=== PATIENT | male | born 1940 | race Caucasian/White ===

== ENCOUNTER 2018-09-08 12:22 | Inpatient (IN) ==
[2018-09-12] MEDS: Sennosides 8.6 MG TABLET PO SCH (19:44)
[2018-09-12] MEDS: *HR* HYDROcodone/Acet 5/325 mg TABLET PO PRN (19:44)
[2018-09-12] MEDS: PHENobarbital 32.4 MG TABLET PO SCH (20:15)
[2018-09-13 05:45] LABS: Basophils % 0.2 %; Eosinophils # 0.2 K/mcL (0.0-0.6); Eosinophils % 3.9 %; Hematocrit 32.1 % (37.5-50.1); Hemoglobin 11.1 g/dL (12.9-16.9); Immature Granulocytes % 0.9 % (0-4); Lymphocytes # 1.1 K/mcL (0.6-4.6); Mean Corpuscular HGB Conc 34.6 g/dL (31.6-35.5); Mean Corpuscular Hemoglobin 30.9 pg (28.0-33.3); Mean Corpuscular Volume 89.4 fL (83.0-100.0); Mean Platelet Volume 9.1 fL (9.4-12.4); Monocytes # 0.5 K/mcL (0.0-1.3); Monocytes % 8.6 %; Neutrophils # 3.8 K/mcL (1.6-8.9); Platelet Count 320 K/mcL (140-400); Red Blood Count 3.59 M/mcL (4.19-5.50); Red Cell Distribution Width 14.5 % (11.5-14.5); Segmented Neutrophils % 67.4 %
[2018-09-13 05:58] LABS: BUN/Creatinine Ratio 14 (6-26); Blood Urea Nitrogen 10 mg/dL (8-23); Carbon Dioxide 27 mEq/L (23-29); Chloride 104 mEq/L (98-107); Glucose 100 mg/dL (70-105); Osmolality,Calculated 287 (280-300); Potassium 3.6 mEq/L (3.5-5.1); Sodium 139 mEq/L (136-145); eGFR For Non-African Americans > 60 (> 60)
[2018-09-13] MEDS: Sennosides 8.6 MG TABLET PO SCH ×2 (09:14→20:10)
[2018-09-13] MEDS: *HR* Rivaroxaban 10 MG TABLET PO SCH (09:14)
[2018-09-13] MEDS: *HR* HYDROcodone/Acet 5/325 mg TABLET PO PRN (09:14)
[2018-09-13] MEDS: PHENobarbital 32.4 MG TABLET PO SCH ×4 (09:22→20:09)
[2018-09-13] MEDS ORDERED: cloNIDine HCl 0.1 MG TABLET PO PRN (11:20)
--- NOTE | 2018-09-13 11:54 | Internal Med History&Physical ---
Addendum entered and electronically signed by Juwan Morales MD 09/13/18 13:17: I have personally performed a face to face evaluation on this patient. I have r eviewed and agree with the care plan. History and Exam by me shows: Patient was interviewed extensively along with family members. He will be treated with therapies for his recent right total hip replacement. His Dilantin level is now back into the therapeutic range but still may be high for him. I assured him and family that this could represent sleep deprivation and/or the medications for pain, etc. We will diminish his pain medicines, as possible. Hopefully, he will improve over the next few days. Therapy staff states that he is doing well but will need a follow-up for safety. He has a rash on his back which looks contact to me. Per nursing, this was present upon his arrival, here. We will resume his Dilantin because his level is now below 20. Please see history and physical, below. Patient has no complaint of chest discomfort, dyspnea, orthopnea, breathing problems, palpitations, nausea or vomiting, constipation or diarrhea, other changes in bowel habits, heartburn, difficulty with urination, kidney problems or kidney stones, fevers chills or sweats, rash or itching, seizures, headache or lightheadedness, heat or cold intolerance, blood problems or anemia, or other new complaints, except as mentioned above. Review of systems is otherwise negative. Examination: (Except as mentioned above): General: In no apparent distress, alert and oriented 3. Head: Atraumatic and normocephalic. Eyes: Extraocular muscles are intact, pupils equal round and reactive to light and accommodation. Sclerae anicteric. Ears: External ears are normal to inspection and hearing is grossly normal. Nose: Patent without lesion noted. Mouth: No intraoral lesions seen. Dentition is unremarkable. Neck: Supple with trachea midline. There is no thyromegaly or adenopathy and carotids are 2+ without bruit heard. Respiratory: No use of accessory muscles. Lungs are clear throughout. Normal airflow. Cardiovascular: Regular rate and rhythm without murmur appreciated. Abdomen: Bowel sounds are normal. No hepatosplenomegaly masses or tenderness. Obese and therefore difficult to palpate deeply. Extremities: No cyanosis clubbing and minimal edema, consistent with surgery.. He has palpable spasm in the right quadriceps muscle. Neurological: A and O 3. Cranial nerves II through XII are intact. No focal deficits and no abnormal movements or postures. Skin: Warm and non-diaphoretic with no lesions noted. Breasts, pelvic and rectal: Not examined. Original Note: Date of Encounter: 09/13/18 Time of Encounter: 11:54 Assessment and Plan (1) Status post right hip replacement Current visit: Yes Status: Acute No acute surgical issues noted. Right hip surgical incision appears healthy. Patient being evaluated by physical therapy today with recommendations pending. Pain currently well-controlled with current medications. We will continue with current plan of care. (2) Epilepsy Current visit: Yes Status: Chronic Patient with history of epilepsy, which per home medications treated with Dilantin and phenobarbital. Per medical records patient was given the wrong dosing during his hospital stay for his right hip replacement and experienced Dilantin toxicity. Patient had a Dilantin level of 32 upon discharge from previous hospital and his Dilantin continued to be held upon arrival here. This morning's Dilantin level shows to be 17.2. No recorded issues from his toxicity was received from previous hospital, but noted that patient arrived at this facility with a rash to his entire upper and middle back, which she states itches. Patient also has been confused since his admission here, having incre ased irritability during patient interactions. Per medical records patient was confused and agitated, as noted in the provided therapy notes. We will restart patient's Dilantin today with the correct home dose and will continue to monitor with serial labs. Patient has shown no seizure activity or cardiac issues since his admission. Qualifiers: Epilepsy type: unspecified Intractability: not intractable Status epilepticus: without status epilepticus Qualified Code(s): G40.909 - Epilepsy, unspecified, not intractable, without status epilepticus (3) Coronary artery disease Current visit: Yes Status: Chronic No acute issues. Patient with recent history a cardiac catheterization which showed a severe RCA lesion, which per medical records shows that medical management was decided. Patient denies any angina. Vital signs are stable. No cardiac issues related to Dilantin toxicity noted. We will continue with current medications and plan of care Qualifiers: Coronary Disease-Associated Artery/Lesion type: unspecified vessel or lesion type [place] vs. transplanted heart: [place] heart Associated angina: angina presence unspecified Qualified Code(s): I25.10 - Atherosclerotic heart disease of [place] coronary artery without angina pectoris (4) Hypertension Current visit: Yes Status: Chronic No acute issues. Vital signs stable. We will continue with current medications. Qualifiers: Hypertension type: unspecified Qualified Code(s): I10 - Essential (primary) hypertension (5) Rash Current visit: Yes Status: Acute Patient noted to have a rash to his upper and middle back that has been present since his admission. Patient complaints of itching to his back. We will apply hydrocortisone cream to affected areas and continue to monitor. Internal Medicine - H&P: HPI Chief complaint: Right hip replacement Admitted From: Hospital to Hospital Transfer Plans for Post Hospital Care: Home History of present illness: Mr. GONSALVES is a 78 year old male , who was admitted to this facility for rehabilitation due to deconditioning related to a right hip replacement. Patient currently appears relaxed, but somewhat drowsy. Patient remains mildly confused having difficulty relating his history. Patient also noted become somewhat irritable during interview. Per medical records patient had had the wrong Dilantin dosing while at previous hospital and had Dilantin toxicity. Per medical records patient's discharge Dilantin level was 32. Today's Dilantin level was 17.2. Per medical records patient had confusion and agitation during his postoperative stay at previous hospital. Patient also noted to have a rash to his upper middle back which she states itches. Patient appears to have frequently scratched his back. No notation was noted and medical records provided by previous hospital regarding his rash. Per nursing patient's rash has been present since his admission. No other recorded issues related to his Dilantin toxicity was noted in the medical records that were provided from previous hospital. Patient showed no surgical issues during his postoperative recovery. Patient currently denies any discomforts to his right hip. Patient with a history of epilepsy which has been treated with Dilantin and phenobarbital. He also with a history of degenerative disc disease for both cervical and lumbar spine. Medical records show a history of a cervical surgery . Patient with a history of coronary artery disease, that included a lesion of the RCA, that was decided to treat medically. Past Med Surg Social Fam HX - Past Medical History Medical history: arthritis, cancer, hyperlipidemia, hypertension, seizures Additional medical history: skin cancer: removed top of head and ear, scoliosis Psychiatric history: no psych history - Past Surgical History Additional surgical history: djd cervical and lumbar spine s/p neck surgery, basal cell carcinoma, squamous cell carcinoma, RTK, LHR, hernia x2, neck fusion, mohs surgery BCC right cutaneous upper lip/SCC left antihelix - Social History Smoking Status: Never smoker Smokeless Tobacco Status: No Alcohol use: occasionally Drug use: none - Family History Sister Adopted: [place]: tolu kwok Age: 75 Family Member Ethnicity: Non- Living Status: Still Living Hx Family Cardiac Disorders: Yes Hx Family Respiratory Disorders: Yes Hx Family Cancer: Yes Hx Family GI Disorders: No Hx Family Genitourinary Disorders: Yes Hx Family Endocrine Disorder: Yes Hx Family Musculoskeletal Disorders: No Hx Family Neuromuscular Disorders: No Hx Family Neurologic Disorders: No Hx Family HEENT Disorders: No Hx Family Autoimmune Disorders: No Hx Family Reproductive Disorders: No Hx Family Psychosocial Disorders: No Hx Family Medical Disorders: No Internal Medicine - H&P: Meds PHENobarbital [Phenobarbital] 0.5 mg PO QID 07/20/18 [History] Phenytoin Sodium Extended [Phenytek] 100 mg PO QID 07/20/18 [History] Acetaminophen [Tylenol] 650 mg PO Q6HR PRN 09/12/18 [History] Atorvastatin [Lipitor] 40 mg PO HS 09/12/18 [History] DiphenhydraMINE [Benadryl] 25 mg PO HS PRN 09/12/18 [History] HYDROcodone/Acet 5/325 mg [[place] 5-325 mg] 2 tab PO Q4H PRN 09/12/18 [History] Polyethylene Glycol 3350 [MiraLAX] 17 gm PO DAILY 09/12/18 [History] Rivaroxaban [Xarelto] 10 mg PO QAM 09/12/18 [History] Sennosides [Senokot] 8.6 mg PO BID 09/12/18 [History] Allergy/AdvReac Type Severity Reaction Status Date / Time Enoxaparin [From Lovenox] AdvReac Rash Verified 07/20/18 08:37 All Systems PM: A 10-system review of systems was performed and is negative for pertinent findings except as documented above in the HPI. - Constitutional Constitutional: no chills, no fever(s), no night sweats - EENT Eyes: as per HPI, no change in vision, no discharge, no pain, no photophobia Ears: no ear discharge, no ear pain, no tinnitus Nose, mouth and throat: no dysphagia, no nasal discharge, no neck pain, no sore throat - Cardiovascular Cardiovascular ROS IM: as per HPI, no chest pain, no diaphoresis, no dyspnea, no lightheadedness, no palpitations, no syncope - Respiratory Respiratory: as per HPI, no cough, no dyspnea, no wheezing, no excessive phlegm production - Gastrointestinal Gastrointestinal: as per HPI, no abdominal pain, no diarrhea, no hematemesis, no hematochezia, no melena, no nausea, no vomiting - Musculoskeletal Musculoskeletal ROS IM: as per HPI, no numbness, no tingling - Integumentary Integumentary IM: as per HPI, no rash, no unusual bruising - Neurological Neurological ROS: as per HPI, no confusion, no convulsions, no focal weakness, no numbness, no tingling, no tremor(s) - Hematologic/Lymphatic Hematologic/Lymphatic: no easy bruising - Constitutional Vitals: Temp Pulse Resp BP Pulse Ox 98.9 F 92 17 151/78 96 09/13/18 03:40 09/13/18 07:28 09/13/18 03:40 09/13/18 07:28 09/13/18 07:28 General appearance: Present: A&O X 2 Exam: Patient unable to answer simple questions appropriately but noted to become a increasingly agitated during interview. Unable to relate place and name but disoriented to time. Patient noted to be poor historian, becoming confused with complex questions about his history. Patient's agitation was achieved from his confusion and frustration - Head Head exam: Present: atraumatic, normocephalic - Eye Eye exam: Present: PERRL, conjuntiva pink, sclera anicteric Pupils: Present: PERRL - Neck Neck exam general surgery: Present: supple, trachea midline. Absent: lymphadenopathy - Respiratory Respiratory exam: Present: CTAB. Absent: accessory muscle use, rales, rhonchi, wheezes - Cardiovascular Cardiovascular exam: Present: RRR, +S1, +S2. Absent: diastolic murmur, gallop, rubs, systolic murmur - GI/Abdominal GI/Abdominal exam: Present: normal bowel sounds, soft, no peritoneal signs. Absent: distended, tenderness - Extremities Exam Extremities exam: Present: warm, radial pulses palpable and symmetrical. Absent: calf tenderness, cyanotic, pedal edema Additional comments: Right hip surgical dressing remains dry and intact with no ecchymosis or erythema noted surrounding surgical incision. No edema noted. - Neurological Exam Neurological exam: Present: CN II-XII intact. Absent: pronater drift, facial droop, speech deficit Additional comments: Patient appears drowsy but easily awakened to verbal stimulus. Patient oriented 2 but not to time. Noted increase agitation during interview. Patient unable to answer complex questions about his history. No focal neurological deficits noted for motor or sensory. No forms of seizure activity noted. - Skin Skin exam: Present: dry, intact, rash Additional comments: Patient noted to have a rash to his entire upper and middle back. Patient appears to have been scratching Internal Med - H&P Results - Labs CBC & Chem 7: 09/13/18 05:10 09/13/18 05:10 Labs: Short CBC 09/13/18 Range/Units 05:10 WBC 5.7 (4.3-11.1) K/mcL Hgb 11.1 L (12.9-16.9) g/dL Hct 32.1 L (37.5-50.1) % Plt Count 320 (140-400) K/mcL Neutrophils # 3.8 (1.6-8.9) K/mcL BMP 09/13/18 05:10 Sodium 139 Potassium 3.6 Chloride 104 Carbon Dioxide 27 BUN 10 Creatinine 0.72 Glucose 100 Calcium 8.0 L
[2018-09-13] MEDS: traMADol 50 MG TABLET PO PRN (14:18)
[2018-09-14] MEDS: traMADol 50 MG TABLET PO PRN ×2 (05:55→14:25)
[2018-09-14 06:02] LABS: Hematocrit 34.9 % (37.5-50.1); Mean Corpuscular HGB Conc 34.4 g/dL (31.6-35.5); Mean Corpuscular Volume 90.2 fL (83.0-100.0); Mean Platelet Volume 8.7 fL (9.4-12.4); Platelet Count 329 K/mcL (140-400); Red Blood Count 3.87 M/mcL (4.19-5.50); Red Cell Distribution Width 14.8 % (11.5-14.5)
[2018-09-14 06:20] LABS: Alanine Aminotransferase 37 Units/L (7-52); Albumin 3.2 g/dL (3.5-5.7); Albumin/Globulin Ratio 1.2 (1.1-2.2); Alkaline Phosphatase 62 Units/L (34-104); Aspartate Amino Transferase 39 Units/L (13-39); BUN/Creatinine Ratio 17 (6-26); Bilirubin,Total 0.4 mg/dL (0.3-1.0); Blood Urea Nitrogen 13 mg/dL (8-23); Carbon Dioxide 29 mEq/L (23-29); Chloride 101 mEq/L (98-107); Globulin 2.7 g/dL (2.4-3.5); Glucose 104 mg/dL (70-105); Osmolality,Calculated 286 (280-300); Potassium 3.6 mEq/L (3.5-5.1); Sodium 138 mEq/L (136-145); Total Protein 5.9 g/dL (6.4-8.9); eGFR For Non-African Americans > 60 (> 60)
[2018-09-14] MEDS: Acetaminophen 325 MG TABLET PO PRN (09:30)
[2018-09-14] MEDS: *HR* Rivaroxaban 10 MG TABLET PO SCH (09:30)
[2018-09-14] MEDS: PHENobarbital 32.4 MG TABLET PO SCH ×4 (09:30→20:37)
[2018-09-14] MEDS: Sennosides 8.6 MG TABLET PO SCH (09:30)
--- NOTE | 2018-09-14 09:39 | Internal Med Progress Note ---
Addendum entered and electronically signed by Juwan Morales MD 09/14/18 10:42: I have personally performed a face to face evaluation on this patient. I have r eviewed and agree with the care plan. History and Exam by me shows: Patient is doing reasonably well. He notes that his "cloudiness" is a little worse than yesterday. However, he slept well. He states that itching is about the same to slightly better. When I told him I thought this was contact dermatitis from sheets or detergent, he agreed, stating "especially all the time I had to lay on the sheets." He is moving his bowels, rather frequently but without diarrhea. He denies abdominal pain. Discussed care with other providers and/or nursing. Patient has no complaint of chest discomfort, dyspnea, orthopnea, palpitations, nausea or vomiting, constipation or diarrhea, other changes in bowel habits, difficulty with urination, rash or itching, or other new complaints, except as m entioned above. Review of systems is otherwise negative. Examination: (Except as mentioned above): General: In no apparent distress. Alert and oriented 3. Nondiaphoretic. Head: Atraumatic and normocephalic. Respiratory: No use of accessory muscles. Lungs are clear throughout. Normal airflow. Cardiovascular: Regular rate and rhythm without murmur appreciated. Abdomen: Bowel sounds are normal. No hepatosplenomegaly mass or tenderness appreciated. Obese and therefore difficult to palpate deeply. Patient is examined upright in chair and this also limits exam. Extremities: No cyanosis clubbing or edema. Skin: Warm and non-diaphoretic with no new lesions noted. There is less erythema at rash and it is crusted. Will follow. Per request of nursing, will change bulk agents to MiraLAX, when necessary. Original Note: Date of Encounter: 09/14/18 Time of Encounter: 09:37 - Assessment and plan (1) Status post right hip replacement Current Visit: Yes Status: Acute Assessment and plan: No acute issues. Surgical incision remains dry and intact with no noted ecchym osis or edema. Patient is progressing with physical therapy. Patient is been well managed with current medications. We will continue with current plan of care (2) Epilepsy Current Visit: Yes Status: Chronic Assessment and plan: No acute issues. Patient's Dilantin level has dropped to 14 today and patient was restarted on his original home dose yesterday. Patient continues to have some "cloudiness" with his memory recall to some complex questions. Denies any other issues. No signs of any form of seizure activity noted during his stay. We will continue with serial labs. Qualifiers: Epilepsy type: unspecified Intractability: not intractable Status epilepticus: without status epilepticus Qualified Code(s): G40.909 - Epilepsy, unspecified, not intractable, without status epilepticus (3) Coronary artery disease Current Visit: Yes Status: Chronic Assessment and plan: No acute issues. He denies any chest palpitations or discomforts. History of coronary artery disease with medical management. We will continue with current plan of care Qualifiers: Coronary Disease-Associated Artery/Lesion type: unspecified vessel or lesion type [place] vs. transplanted heart: [place] heart Associated angina: angina presence unspecified Qualified Code(s): I25.10 - Atherosclerotic heart disease of [place] coronary artery without angina pectoris (4) Hypertension Current Visit: Yes Status: Chronic Assessment and plan: Vital signs remained stable. We will continue with current medications. Qualifiers: Hypertension type: unspecified Qualified Code(s): I10 - Essential (primary) hypertension (5) Rash Current Visit: Yes Status: Acute Assessment and plan: Patient continues with rash to his upper mid back which today appears somewhat better. Patient continues to complain of itching to rash. Appearance of the likely contact dermatitis or heat rash. - Time Spent With Patient less than 15 minutes - Subjective Interval history: Patient appears relaxed and currently denies any discomforts or shortness of breath. Patient continues to have some difficulty answering complex questions but is mostly appropriate with conversation. Patient states that his recall re ulices somewhat fuzzy. Patient's most recent Dilantin level dropped to 14. Patient was restarted on his original home dosing of Dilantin yesterday. - Constitutional Vitals: Temp Pulse Resp BP Pulse Ox 99.7 F H 94 16 145/81 94 09/14/18 08:30 09/14/18 08:30 09/14/18 08:30 09/14/18 08:30 09/14/18 08:30 General appearance: Present: A&O X 3, pleasant Exam: Conversation remains appropriate although patient does continue to have some difficulty with recall and answering complex questions. - Head Head exam: Present: atraumatic, normocephalic - Eye Eye exam: Present: PERRL, conjuntiva pink, sclera anicteric Pupils: Present: PERRL - Neck Neck exam general surgery: Present: supple, trachea midline. Absent: lymphadenopathy - Respiratory Respiratory exam: Present: CTAB. Absent: accessory muscle use, rales, rhonchi, wheezes - Cardiovascular Cardiovascular exam: Present: RRR, +S1, +S2. Absent: diastolic murmur, gallop, rubs, systolic murmur - GI/Abdominal GI/Abdominal exam: Present: normal bowel sounds, soft, no peritoneal signs. Absent: distended, tenderness - Extremities Exam Extremities exam: Present: warm, radial pulses palpable and symmetrical. Absent: calf tenderness, cyanotic, pedal edema Additional comments: Left arm noted to have chronic muscle atrophy. Right hip surgical dressing remains dry and intact with no noted ecchymosis or edema. - Neurological Exam Neurological exam: Present: CN II-XII intact, oriented X3, no focal deficits. Absent: pronater drift, facial droop, speech deficit Additional comments: Patient has slight left hemiparesis with a slight spastic-type movement noted. Noted atrophy to left arm. Patient is right-handed - Skin Skin exam: Present: dry, intact Internal Medicine: Result - Labs CBC & Chem 7: 09/14/18 05:55 09/14/18 05:55 Labs: Short CBC 09/14/18 Range/Units 05:55 WBC 5.9 (4.3-11.1) K/mcL Hgb 12.0 L (12.9-16.9) g/dL Hct 34.9 L (37.5-50.1) % Plt Count 329 (140-400) K/mcL [facility] 09/14/18 05:55 Sodium 138 Potassium 3.6 Chloride 101 Carbon Dioxide 29 BUN 13 Creatinine 0.76 Glucose 104 Calcium 8.0 L Liver Function 09/14/18 Range/Units 05:55 Total Bilirubin 0.4 (0.3-1.0) mg/dL AST 39 (13-39) Units/L ALT 37 (7-52) Units/L Alkaline Phosphatase 62 (34-104) Units/L Albumin 3.2 L (3.5-5.7) g/dL Consult Discharge Plan - Plan Referrals: Yadira France MD [Primary Care Provider] -
--- NOTE | 2018-09-14 17:44 | Electrocardiograph Report ---
[address] [address] Test Date: 2018-09-14 Pat Name: MIKAEL GONSALVES Department: 2001 Room: 114 Gender: M Prosthetics Assistant: : [id number] Requested By: Juwan Morales Order Number: [id number] Reading MD: Mary Frank Measurements Intervals [place] Rate: 80 P: -4 CO: 120 QRS: 61 QRSD: 129 T: 77 QT: 410 QTc: 446 Interpretive Statements SINUS RHYTHM INTRAVENTRICULAR CONDUCTION DELAY [110+ ms QRS DURATION] NONSPECIFIC ST & T-WAVE ABNORMALITY Electronically Signed On 09-14-2018 17:42:50 EST by Mary Frank
--- NOTE | 2018-09-15 09:13 | Internal Med Progress Note ---
Addendum entered and electronically signed by Juwan Morales MD 09/15/18 14:48: I have personally performed a face to face evaluation on this patient. I have r eviewed and agree with the care plan. History and Exam by me shows: Patient is without complaint. He admits to pain but when I told him that nursing and therapy thought he was minimizing, he said that at times of day he does do this. I told him we would be giving him the option of to Ultram 50 mg tablets so that if he was in a lot of pain he needed to let the nurses know. He voices understanding and said he will see if this helps. I told him that we could go back to hydrocodone with his pain control was not adequate. He states that he is a little bit better in terms of his mental clarity. Discussed care with other providers and/or nursing. Patient has no complaint of chest discomfort, dyspnea, orthopnea, palpitations, nausea or vomiting, constipation or diarrhea, other changes in bowel habits, difficulty with urination, rash or itching, or other new complaints, except as mentioned above. Review of systems is otherwise negative. Examination: (Except as mentioned above): General: In no apparent distress. Alert and oriented 3. Nondiaphoretic. Head: Atraumatic and normocephalic. Respiratory: No use of accessory muscles. Lungs are clear throughout. Normal airflow. Cardiovascular: Regular rate and rhythm without murmur appreciated. Abdomen: Bowel sounds are normal. No hepatosplenomegaly mass or tenderness appreciated. Obese and therefore difficult to palpate deeply. Extremities: No cyanosis clubbing or edema. Skin: Warm and non-diaphoretic with no new lesions noted. Original Note: Date of Encounter: 09/15/18 Time of Encounter: 09:10 - Assessment and plan (1) Status post right hip replacement Current Visit: Yes Status: Acute Assessment and plan: No acute issues. Surgical incision remains dry and intact with no noted ecchymosis or edema. Patient is progressing with physical therapy. Patient is been well managed with current medications. We will continue with current plan of care (2) Epilepsy Current Visit: Yes Status: Chronic Assessment and plan: No acute issues. Patient's Dilantin level has dropped to 14 yesterday and patient was restarted on his original home dose. Patient appears more alert with his conversation. Denies any other issues. No signs of any form of seizure activity noted during his stay. We will continue with serial labs. Qualifiers: Epilepsy type: unspecified Intractability: not intractable Status epilepticus: without status epilepticus Qualified Code(s): G40.909 - Epilepsy, unspecified, not intractable, without status epilepticus (3) Coronary artery disease Current Visit: Yes Status: Chronic Assessment and plan: No acute issues. He denies any chest palpitations or discomforts. History of coronary artery disease with medical management. We will continue with current plan of care Qualifiers: Coronary Disease-Associated Artery/Lesion type: unspecified vessel or lesion type [place] vs. transplanted heart: [place] heart Associated angina: angina presence unspecified Qualified Code(s): I25.10 - Atherosclerotic heart disease of [place] coronary artery without angina pectoris (4) Hypertension Current Visit: Yes Status: Chronic Assessment and plan: Vital signs remained stable. We will continue with current medications. Qualifiers: Hypertension type: unspecified Qualified Code(s): I10 - Essential (primary) hypertension (5) Rash Current Visit: Yes Status: Acute Assessment and plan: Patient continues with rash to his upper mid back which today appears to be improving and healing. Patient continues to complain of itching to rash. - Time Spent With Patient less than 15 minutes - Subjective Interval history: Patient appears relaxed and currently denies any discomforts or shortness of breath. Patient noted to be more clear with conversation today. Denies any issues. Patient continues on current home dose of Dilantin - Constitutional Vitals: Temp Pulse Resp BP Pulse Ox 97.8 F 81 16 162/87 97 09/14/18 19:18 09/14/18 19:18 09/14/18 19:18 09/14/18 19:18 09/14/18 19:18 General appearance: Present: A&O X 3, pleasant - Head Head exam: Present: atraumatic, normocephalic - Eye Eye exam: Present: PERRL, conjuntiva pink, sclera anicteric Pupils: Present: PERRL - Neck Neck exam general surgery: Present: supple, trachea midline. Absent: lymphadenopathy - Respiratory Respiratory exam: Present: CTAB. Absent: accessory muscle use, rales, rhonchi, wheezes - Cardiovascular Cardiovascular exam: Present: RRR, +S1, +S2. Absent: diastolic murmur, gallop, rubs, systolic murmur - GI/Abdominal GI/Abdominal exam: Present: normal bowel sounds, soft, no peritoneal signs. Absent: distended, tenderness - Extremities Exam Extremities exam: Present: warm, radial pulses palpable and symmetrical. Absent: calf tenderness, cyanotic, pedal edema Additional comments: Right hip surgical dressing remains dry and intact. No edema or ecchymosis noted - Neurological Exam Neurological exam: Present: CN II-XII intact, oriented X3. Absent: pronater drift, facial droop, speech deficit Additional comments: Patient with slight left hemiparesis with muscle strength at 4+/5. Noted slight atrophy of left upper extremity. Chronic hemiparesis since - Skin Skin exam: Present: dry, intact Internal Medicine: Result - Labs CBC & Chem 7: 09/14/18 05:55 09/14/18 05:55 Consult Discharge Plan - Plan Referrals: Yadira France MD [Primary Care Provider] -
[2018-09-15] MEDS: traMADol 50 MG TABLET PO PRN ×2 (09:41→18:25)
[2018-09-15] MEDS: *HR* Rivaroxaban 10 MG TABLET PO SCH (09:41)
[2018-09-15] MEDS: PHENobarbital 32.4 MG TABLET PO SCH ×4 (09:42→20:09)
[2018-09-15] MEDS: Acetaminophen 325 MG TABLET PO PRN ×2 (11:57→20:10)
[2018-09-15] MEDS ORDERED: traMADol 50 MG TABLET PO PRN (20:38)
[2018-09-16] MEDS: traMADol 50 MG TABLET PO PRN ×3 (05:13→21:16)
[2018-09-16] MEDS: PHENobarbital 32.4 MG TABLET PO SCH ×4 (08:36→21:16)
[2018-09-16] MEDS: Acetaminophen 325 MG TABLET PO PRN (08:36)
[2018-09-16] MEDS: *HR* Rivaroxaban 10 MG TABLET PO SCH (08:36)
--- NOTE | 2018-09-16 15:53 | Internal Med Progress Note ---
Date of Encounter: 09/16/18 Time of Encounter: 12:30 - Assessment and plan (1) Status post right hip replacement Current Visit: Yes Status: Acute Assessment and plan: Doing well and will continue with therapies. He has mild edema on the right which is expected. (2) Coronary artery disease Current Visit: Yes Status: Chronic Assessment and plan: This seems to be clinically stable without recent signs or symptoms. Qualifiers: Coronary Disease-Associated Artery/Lesion type: unspecified vessel or lesion type [place] vs. transplanted heart: [place] heart Associated angina: angina presence unspecified Qualified Code(s): I25.10 - Atherosclerotic heart disease of [place] coronary artery without angina pectoris (3) Epilepsy Current Visit: Yes Status: Chronic Assessment and plan: Stable on seizure precautions but with no recent seizures. He has apparently resolved that his episode of Dilantin toxicity. Qualifiers: Epilepsy type: unspecified Intractability: not intractable Status epilepticus: without status epilepticus Qualified Code(s): G40.909 - Epilepsy, unspecified, not intractable, without status epilepticus (4) Hypertension Current Visit: Yes Status: Chronic Assessment and plan: Clinically stable and will follow. Qualifiers: Hypertension type: unspecified Qualified Code(s): I10 - Essential (primary) hypertension (5) Rash Current Visit: Yes Status: Acute Assessment and plan: This seems to be contact dermatitis but etiology is not certain. It is stable to improving. - Subjective Interval history: Patient is feeling better and is generally less "cloudy." He states that his pain is currently 3 out of 10 but at the end of therapy was 10 out of 10. The patient denies other problems, acutely. Patient has no complaint of chest discomfort, dyspnea, orthopnea, palpitations, nausea or vomiting, constipation or diarrhea, other changes in bowel habits, difficulty with urination, rash or itching, or other new complaints, except as mentioned above. Review of systems is otherwise negative. I discussed management of her care with nursing staff. - Constitutional Vitals: Temp Pulse Resp BP Pulse Ox 97.9 F 71 16 127/75 95 09/16/18 07:00 09/16/18 07:00 09/16/18 07:00 09/16/18 07:00 09/16/18 07:00 Exam: Examination: (Except as mentioned above): General: In no apparent distress. Alert and oriented 3. Nondiaphoretic. Head: Atraumatic and normocephalic. Respiratory: No use of accessory muscles. Lungs are clear throughout. Normal airflow. Cardiovascular: Regular rate and rhythm without murmur appreciated. Abdomen: Bowel sounds are normal. No hepatosplenomegaly mass or tenderness appreciated. Obese and therefore difficult to palpate deeply.Patient is examined upright in chair and this also limits exam. Extremities: No cyanosis clubbing or change in edema. Skin: Warm and non-diaphoretic with no new lesions noted. Internal Medicine: Result - Labs CBC & Chem 7: 09/14/18 05:55 09/14/18 05:55 Consult Discharge Plan - Plan Referrals: Yadira France MD [Primary Care Provider] -
[2018-09-17] MEDS: traMADol 50 MG TABLET PO PRN (04:29)
[2018-09-17] MEDS: PHENobarbital 32.4 MG TABLET PO SCH ×4 (08:16→21:16)
[2018-09-17] MEDS: *HR* Rivaroxaban 10 MG TABLET PO SCH (08:16)
--- NOTE | 2018-09-17 14:42 | Internal Med Progress Note ---
Date of Encounter: 09/17/18 Time of Encounter: 14:41 - Assessment and plan (1) Status post right hip replacement Current Visit: Yes Status: Acute (2) Coronary artery disease Current Visit: Yes Status: Chronic Qualifiers: Coronary Disease-Associated Artery/Lesion type: unspecified vessel or lesion type [place] vs. transplanted heart: [place] heart Associated angina: angina presence unspecified Qualified Code(s): I25.10 - Atherosclerotic heart disease of [place] coronary artery without angina pectoris (3) Epilepsy Current Visit: Yes Status: Chronic Qualifiers: Epilepsy type: unspecified Intractability: not intractable Status epile pticus: without status epilepticus Qualified Code(s): G40.909 - Epilepsy, unspecified, not intractable, without status epilepticus (4) Hypertension Current Visit: Yes Status: Chronic Qualifiers: Hypertension type: unspecified Qualified Code(s): I10 - Essential (primary) hypertension (5) Rash Current Visit: Yes Status: Acute - Subjective Interval history: Patient is without complaint and is doing well. He denies any needs. Because he has a room full of people, he is not formally examined or visited today. - Constitutional Vitals: Temp Pulse Resp BP Pulse Ox 97.9 F 68 18 154/72 99 09/17/18 07:00 09/17/18 07:00 09/17/18 07:00 09/17/18 07:00 09/17/18 07:00 General appearance: Present: A&O X 3, pleasant Internal Medicine: Result - Labs CBC & Chem 7: 09/14/18 05:55 09/14/18 05:55 Consult Discharge Plan - Plan Referrals: Yadira France MD [Primary Care Provider] -
[2018-09-18] MEDS: traMADol 50 MG TABLET PO PRN (05:44)
[2018-09-18 06:27] LABS: BUN/Creatinine Ratio 16 (6-26); Blood Urea Nitrogen 14 mg/dL (8-23); Calcium 8.4 mg/dL (8.6-10.3); Carbon Dioxide 29 mEq/L (23-29); Chloride 103 mEq/L (98-107); Glucose 102 mg/dL (70-105); Osmolality,Calculated 287 (280-300); Potassium 4.2 mEq/L (3.5-5.1); Sodium 138 mEq/L (136-145); eGFR For Non-African Americans > 60 (> 60)
[2018-09-18] MEDS: *HR* Rivaroxaban 10 MG TABLET PO SCH (09:46)
[2018-09-18] MEDS: PHENobarbital 32.4 MG TABLET PO SCH ×4 (09:46→21:48)
--- NOTE | 2018-09-18 14:05 | Internal Med Progress Note ---
Date of Encounter: 09/18/18 Time of Encounter: 14:03 - Assessment and plan (1) Status post right hip replacement Current Visit: Yes Status: Acute Assessment and plan: The patient is doing well with therapy. He is improving and discharge is anticipated in about 3 days. (2) Coronary artery disease Current Visit: Yes Status: Chronic Assessment and plan: Clinically stable without signs or symptoms. Qualifiers: Coronary Disease-Associated Artery/Lesion type: unspecified vessel or lesion type [place] vs. transplanted heart: [place] heart Associated angina: angina presence unspecified Qualified Code(s): I25.10 - Atherosclerotic heart disease of [place] coronary artery without angina pectoris (3) Epilepsy Current Visit: Yes Status: Chronic Assessment and plan: No evidence of seizures. For whatever reason, he continues to have daily Dilantin levels and I thought this was stopped days ago. Will discontinue. Qualifiers: Epilepsy type: unspecified Intractability: not intractable Status epilepticus: without status epilepticus Qualified Code(s): G40.909 - Epilepsy, unspecified, not intractable, without status epilepticus (4) Hypertension Current Visit: Yes Status: Chronic Assessment and plan: Clinically stable and will follow. Qualifiers: Hypertension type: unspecified Qualified Code(s): I10 - Essential (primary) hypertension (5) Rash Current Visit: Yes Status: Acute Assessment and plan: Etiology is uncertain. He is symptomatically stable. We will continue to follow. - Subjective Interval history: Patient is noted by nursing to have complained of mouth sores. He has no other change in his rash and itching persist. Occupational therapy notes that he is having more rash on his right foot, this morning. The patient has not had a bowel movement yesterday or today and is concerned about becoming constipated again. Patient has no complaint of chest discomfort, dyspnea, orthopnea, palpitations, nausea or vomiting, constipation or diarrhea, other changes in bowel habits, difficulty with urination, rash or itching, or other new complaints, except as mentioned above. Review of systems is otherwise negative. I discussed management of her care with nursing staff. - Constitutional Vitals: Temp Pulse Resp BP Pulse Ox 98.3 F 89 18 170/84 93 09/18/18 08:00 09/18/18 08:00 09/18/18 08:00 09/18/18 08:00 09/18/18 08:00 Exam: Examination: (Except as mentioned above): General: In no apparent distress. Alert and oriented 3. Nondiaphoretic. Head: Atraumatic and normocephalic. Respiratory: No use of accessory muscles. Lungs are clear throughout. Normal airflow. Cardiovascular: Regular rate and rhythm without murmur appreciated. Abdomen: Bowel sounds are normal. No hepatosplenomegaly mass or tenderness appreciated. Obese and therefore difficult to palpate deeply. Extremities: No cyanosis clubbing or edema. Skin: Warm and dry. His rash on his back is improving but still has some areas crusted.. He has 2 small areas and lateral foot dorsum which are papular and not symptomatic, non-erythematous. Etiology is uncertain. Internal Medicine: Result - Labs CBC & Chem 7: 09/14/18 05:55 09/18/18 05:30 Labs: BMP 09/18/18 05:30 Sodium 138 Potassium 4.2 Chloride 103 Carbon Dioxide 29 BUN 14 Creatinine 0.89 Glucose 102 Calcium 8.4 L Consult Discharge Plan - Plan Referrals: Yadira France MD [Primary Care Provider] -
[2018-09-19] MEDS: traMADol 50 MG TABLET PO PRN (05:40)
[2018-09-19] MEDS: PHENobarbital 32.4 MG TABLET PO SCH ×4 (08:11→22:20)
[2018-09-19] MEDS: *HR* Rivaroxaban 10 MG TABLET PO SCH (08:12)
--- NOTE | 2018-09-19 11:49 | Internal Med Progress Note ---
Date of Encounter: 09/19/18 Time of Encounter: 11:49 - Assessment and plan (1) Status post right hip replacement Current Visit: Yes Status: Acute Assessment and plan: He continues to do well. Plan is for continued therapies until 3 days from now. (2) Coronary artery disease Current Visit: Yes Status: Chronic Assessment and plan: No signs or symptoms. Qualifiers: Coronary Disease-Associated Artery/Lesion type: unspecified vessel or lesion type [place] vs. transplanted heart: [place] heart Associated angina: angina presence unspecified Qualified Code(s): I25.10 - Atherosclerotic heart disease of [place] coronary artery without angina pectoris (3) Epilepsy Current Visit: Yes Status: Chronic Assessment and plan: No seizures. Qualifiers: Epilepsy type: unspecified Intractability: not intractable Status epilepticus: without status epilepticus Qualified Code(s): G40.909 - Epilepsy, unspecified, not intractable, without status epilepticus (4) Hypertension Current Visit: Yes Status: Chronic Assessment and plan: Clinically stable. Qualifiers: Hypertension type: unspecified Qualified Code(s): I10 - Essential (primary) hypertension (5) Rash Current Visit: Yes Status: Acute Assessment and plan: The etiology is uncertain but he is improving. - Subjective Interval history: Patient is feeling better and notes that itching is less although persistent. Bowels have moved without laxative and he has no diarrhea. Patient has no complaint of chest discomfort, dyspnea, orthopnea, palpitations, nausea or vomiting, constipation or diarrhea, other changes in bowel habits, difficulty with urination, rash or itching, or other new complaints, except as mentioned above. Review of systems is otherwise negative. I discussed management of her care with nursing staff. - Constitutional Vitals: Temp Pulse Resp BP Pulse Ox 97.8 F 72 16 124/69 93 09/19/18 08:29 09/19/18 08:29 09/19/18 08:29 09/19/18 08:29 09/19/18 08:29 Exam: Examination: (Except as mentioned above): General: In no apparent distress. Alert and oriented 3. Nondiaphoretic. Head: Atraumatic and normocephalic. Respiratory: No use of accessory muscles. Lungs are clear throughout. Normal airflow. Cardiovascular: Regular rate and rhythm without murmur appreciated. Abdomen: Bowel sounds are normal. No hepatosplenomegaly mass or tenderness appreciated. Obese and therefore difficult to palpate deeply. Patient is examined upright in chair and this also limits exam. Extremities: No cyanosis clubbing or edema. Skin: Warm and non-diaphoretic with no new lesions noted. Still has abnormalities at ankles which are the same to better versus yesterday. He has markedly improved rash at his back. There is minimal erythema but essentially the crusts are gone or almost totally gone. Internal Medicine: Result - Labs CBC & Chem 7: 09/14/18 05:55 09/18/18 05:30 Consult Discharge Plan - Plan Referrals: Yadira France MD [Primary Care Provider] -
[2018-09-19] MEDS: Acetaminophen 325 MG TABLET PO PRN (17:14)
[2018-09-20] MEDS: PHENobarbital 32.4 MG TABLET PO SCH ×4 (10:00→22:46)
[2018-09-20] MEDS: *HR* Rivaroxaban 10 MG TABLET PO SCH (10:00)
--- NOTE | 2018-09-20 10:42 | Internal Med Progress Note ---
Addendum entered and electronically signed by Juwan Morales MD 09/20/18 12:20: Multiple attempts to see patient were unsuccessful because of his participation in therapies. He denies problems and is functioning well, with therapies. Original Note: Date of Encounter: 09/20/18 Time of Encounter: 10:40 - Assessment and plan (1) Status post right hip replacement Current Visit: Yes Status: Acute Assessment and plan: No acute issues. Surgical incision remains dry and intact with no noted ecchymosis or edema. Patient is progressing with physical therapy. Patient is been well managed with current medications. We will continue with current plan of care (2) Epilepsy Current Visit: Yes Status: Chronic Assessment and plan: No acute issues. Patient's Dilantin level has dropped to 12 on latest labs and continues on current home dosing. Patient continues with no signs of seizure activity or any symptoms of Dilantin toxicity Qualifiers: Epilepsy type: unspecified Intractability: not intractable Status epilepticus: without status epilepticus Qualified Code(s): G40.909 - Epilepsy, unspecified, not intractable, without status epilepticus (3) Coronary artery disease Current Visit: Yes Status: Chronic Assessment and plan: No acute issues. He denies any chest palpitations or discomforts. History of coronary artery disease with medical management. We will continue with current plan of care Qualifiers: Coronary Disease-Associated Artery/Lesion type: unspecified vessel or lesion type [place] vs. transplanted heart: [place] heart Associated angina: angina presence unspecified Qualified Code(s): I25.10 - Atherosclerotic heart disease of [place] coronary artery without angina pectoris (4) Hypertension Current Visit: Yes Status: Chronic Assessment and plan: Vital signs remained stable. We will continue with current medications. Qualifiers: Hypertension type: unspecified Qualified Code(s): I10 - Essential (primary) hypertension - Time Spent With Patient less than 15 minutes - Subjective Interval history: Patient appears relaxed and currently denies any discomforts or shortness of breath. Patient states that this pain is well-controlled with current medications. Patient states that physical therapy has been progressing well and denies any current issues - Constitutional Vitals: Temp Pulse Resp BP Pulse Ox 98.3 F 75 18 137/74 94 09/20/18 06:46 09/20/18 06:46 09/20/18 06:46 09/20/18 06:46 09/20/18 06:46 General appearance: Present: A&O X 3, pleasant - Head Head exam: Present: atraumatic, normocephalic - Eye Eye exam: Present: PERRL, conjuntiva pink, sclera anicteric Pupils: Present: PERRL - Neck Neck exam general surgery: Present: supple, trachea midline. Absent: lymphadenopathy - Respiratory Respiratory exam: Present: CTAB. Absent: accessory muscle use, rales, rhonchi, wheezes - Cardiovascular Cardiovascular exam: Present: RRR, +S1, +S2. Absent: diastolic murmur, gallop, rubs, systolic murmur - GI/Abdominal GI/Abdominal exam: Present: normal bowel sounds, soft, no peritoneal signs. Absent: distended, tenderness - Extremities Exam Extremities exam: Present: warm, radial pulses palpable and symmetrical. Absent: calf tenderness, cyanotic, pedal edema Additional comments: Right hip surgical incision appears dry and intact with no ecchymosis, erythema or edema noted. - Neurological Exam Neurological exam: Present: CN II-XII intact, oriented X3. Absent: pronater drift, facial droop, speech deficit Additional comments: Patient continues with slight left hemiparesis with muscle strength at 4+/5. 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 Continues to have a spastic type movement during fine motor movement. - Skin Skin exam: Present: dry, intact Internal Medicine: Result - Labs CBC & Chem 7: 09/14/18 05:55 09/18/18 05:30 Consult Discharge Plan - Plan Referrals: Yadira France MD [Primary Care Provider] -
[2018-09-20 11:39] LABS: Basophils % 0.3 %; Eosinophils # 0.1 K/mcL (0.0-0.6); Eosinophils % 0.8 %; Hematocrit 36.8 % (37.5-50.1); Hemoglobin 12.3 g/dL (12.9-16.9); Immature Granulocytes % 0.4 % (0-4); Lymphocytes # 1.3 K/mcL (0.6-4.6); Lymphocytes % 16.8 %; Mean Corpuscular HGB Conc 33.4 g/dL (31.6-35.5); Mean Corpuscular Hemoglobin 31.2 pg (28.0-33.3); Mean Corpuscular Volume 93.4 fL (83.0-100.0); Mean Platelet Volume 9.2 fL (9.4-12.4); Monocytes # 0.9 K/mcL (0.0-1.3); Monocytes % 11.1 %; Neutrophils # 5.5 K/mcL (1.6-8.9); Platelet Count 440 K/mcL (140-400); Red Blood Count 3.94 M/mcL (4.19-5.50); Red Cell Distribution Width 15.4 % (11.5-14.5); Segmented Neutrophils % 70.6 %
[2018-09-21] MEDS: traMADol 50 MG TABLET PO PRN (06:27)
[2018-09-21] MEDS: PHENobarbital 32.4 MG TABLET PO SCH ×4 (09:00→20:47)
[2018-09-21] MEDS: *HR* Rivaroxaban 10 MG TABLET PO SCH (09:00)
--- NOTE | 2018-09-21 12:19 | Internal Med Progress Note ---
Addendum entered and electronically signed by Juwan Morales MD 09/21/18 12:24: I have personally performed a face to face evaluation on this patient. I have r eviewed and agree with the care plan. History and Exam by me shows: Patient is without complaint. He is pleased that he is to go home tomorrow. He is to have a follow-up with surgeon, today. He denies bowel or bladder discomfort or problem. His itching is still present but continues to improve. No rash changes. Discussed care with other providers and/or nursing. Patient has no complaint of chest discomfort, dyspnea, orthopnea, palpitations, nausea or vomiting, constipation or diarrhea, other changes in bowel habits, difficulty with urination, rash or itching, or other new complaints, except as mentioned above. Review of systems is otherwise negative. Examination: (Except as mentioned above): General: In no apparent distress. Alert and oriented 3. Nondiaphoretic. Head: Atraumatic and normocephalic. Respiratory: No use of accessory muscles. Lungs are clear throughout. Normal airflow. Cardiovascular: Regular rate and rhythm without murmur appreciated. Abdomen: Bowel sounds are normal. No hepatosplenomegaly mass or tenderness appreciated. Obese and therefore difficult to palpate deeply. Patient is examined upright in chair and this also limits exam. Extremities: No cyanosis clubbing or edema. Skin: Warm and non-diaphoretic with no new lesions noted. Original Note: Date of Encounter: 09/21/18 Time of Encounter: 12:16 - Assessment and plan (1) Status post right hip replacement Current Visit: Yes Status: Acute Assessment and plan: No acute issues. Surgical incision remains dry and intact with no noted ecchymosis or edema. Patient is progressing with physical therapy. Patient is been well managed with current medications. We will continue with current plan of care. Patient is going for a follow-up visit with his orthopedic surgeon today and will await further recommendations. (2) Epilepsy Current Visit: Yes Status: Chronic Assessment and plan: No acute issues. Patient's Dilantin level has dropped to 12 on latest labs and continues on current home dosing. Patient continues with no signs of seizure activity or any symptoms of Dilantin toxicity Qualifiers: Epilepsy type: unspecified Intractability: not intractable Status epilepticus: without status epilepticus Qualified Code(s): G40.909 - Epilepsy, unspecified, not intractable, without status epilepticus (3) Coronary artery disease Current Visit: Yes Status: Chronic Assessment and plan: No acute issues. He denies any chest palpitations or discomforts. History of coronary artery disease with medical management. We will continue with current plan of care Qualifiers: Coronary Disease-Associated Artery/Lesion type: unspecified vessel or lesion type [place] vs. transplanted heart: [place] heart Associated angina: angina presence unspecified Qualified Code(s): I25.10 - Atherosclerotic heart disease of [place] coronary artery without angina pectoris (4) Hypertension Current Visit: Yes Status: Chronic Assessment and plan: Vital signs remained stable. We will continue with current medications. Qualifiers: Hypertension type: unspecified Qualified Code(s): I10 - Essential (primary) hypertension - Time Spent With Patient less than 15 minutes - Subjective Interval history: Patient appears relaxed and currently denies any discomforts or shortness of breath. Patient states that this pain is well-controlled with current medications. Patient states that physical therapy has been progressing well and denies any current issues. Patient has going for a follow-up visit with his orthopedic surgeon today. - Constitutional Vitals: Temp Pulse Resp BP Pulse Ox 98.1 F 74 16 136/70 95 09/21/18 06:39 09/21/18 06:39 09/21/18 06:39 09/21/18 06:39 09/21/18 06:39 General appearance: Present: A&O X 3, pleasant - Head Head exam: Present: atraumatic, normocephalic - Eye Eye exam: Present: PERRL, conjuntiva pink, sclera anicteric Pupils: Present: PERRL - Neck Neck exam general surgery: Present: supple, trachea midline. Absent: lymphadenopathy - Respiratory Respiratory exam: Present: CTAB. Absent: accessory muscle use, rales, rhonchi, wheezes - Cardiovascular Cardiovascular exam: Present: RRR, +S1, +S2. Absent: diastolic murmur, gallop, rubs, systolic murmur - GI/Abdominal GI/Abdominal exam: Present: normal bowel sounds, soft, no peritoneal signs. Absent: distended, tenderness - Extremities Exam Extremities exam: Present: warm, radial pulses palpable and symmetrical. Absent: calf tenderness, cyanotic, pedal edema Additional comments: Right hip surgical incision appears dry and intact with no noted erythema or ecchymosis. No edema noted. - Neurological Exam Neurological exam: Present: CN II-XII intact, oriented X3. Absent: pronater drift, facial droop, speech deficit Additional comments: Patient with noted slight left hemiparesis and +4/5 muscle strength. Chronic issue since childbirth - Skin Skin exam: Present: dry, intact Internal Medicine: Result - Labs CBC & Chem 7: 09/20/18 11:35 09/18/18 05:30 Consult Discharge Plan - Plan Referrals: Yadira France MD [Primary Care Provider] -
--- NOTE | 2018-09-21 13:46 | Psychological Evaluation ---
Date of Encounter: 09/21/18 Time of Encounter: 10:30 History of Present Illness History of present illness: Mr. GONSALVES is a 78 year old male who was admitted to this facility for rehabilitation due to deconditioning related to a right hip replacement. Per medical records patient had the wrong Dilantin dosing while at previous hospital and had Dilantin toxicity. Patient with a history of epilepsy which has been treated with Dilantin and phenobarbital. He also has a history of degenerative disc disease for both cervical and lumbar spine. Medical records show a history of a cervical surgery. Patient with a history of coronary artery disease, that included a lesion of the RCA, that was decided to treat medically. Past Medical History - Psychiatric History Psychiatric history: Reports: depression, other Additional Psychiatric History: Possibly saw a psychologist while in elementary/middle school. Had significant history of seizures disorder that was not controlled during his youth and learning problems. Home Medications and Allergies PHENobarbital [Phenobarbital] 0.5 mg PO QID 07/20/18 [History] Phenytoin Sodium Extended [Phenytek] 100 mg PO QID 07/20/18 [History] Acetaminophen [Tylenol] 650 mg PO Q6HR PRN 09/12/18 [History] Atorvastatin [Lipitor] 40 mg PO HS 09/12/18 [History] DiphenhydraMINE [Benadryl] 25 mg PO HS PRN 09/12/18 [History] HYDROcodone/Acet 5/325 mg [[place] 5-325 mg] 2 tab PO Q4H PRN 09/12/18 [History] Polyethylene Glycol 3350 [MiraLAX] 17 gm PO DAILY 09/12/18 [History] Rivaroxaban [Xarelto] 10 mg PO QAM 09/12/18 [History] Sennosides [Senokot] 8.6 mg PO BID 09/12/18 [History] Allergy/AdvReac Type Severity Reaction Status Date / Time Enoxaparin [From Lovenox] AdvReac Rash Verified 07/20/18 08:37 Social History - Social History Social History: Pt 39 years and has 4 boys and 2 grandchildren. is his "brain". He left school in either 6-7 grade and started working with many unskilled positions. He retired "early" due to his disability - learning and seizure. He was tearful discussing his early years and seizure activity. He also was annoyed whe discussing the medication error at the other hospital. Stated born with a "weak left side due to issues at ". - Tobacco Use Smoking Status: Never smoker - Alcohol Use Alcohol Use: occasionally - Drug Use Drug Use: none Cognitive/Emotional Assessment - Cognitive Ability Language Function Ability: No Deficits Noted Verbal Communication Ability: Conversational Style Level of Alertness: Alert Memory Description: Short Term Impaired, Working Impaired Orientation: Person, Place, Time Ability to Follow Directions: Good Speech Pattern: Normal rate Thought Process: Goal Oriented Calculations: Unable to do calculations Immediate Recall: Unable to perform recall Additional Findings: pt able to perform 5 digits forward and 2 backward. Unable to spell WORLD forwards or backwards. Unable to perform serial 3's. Divided attention and stm were weak. He stated memory has always been an issue along with math. - Emotional Status Mood Description: Depressed Affect Description: Full range, Congruent with mood Coping Ability: Verbalizes positive coping skills Additional Findings: Stated can not read well.Tearful during interview. Assessment & Plan - Prognosis Prognosis: Good - Treatment Plan Treatment Plan/Recommendations: Will see while IP to develop and train strategies for mood elevation to cope with changes in functioning. Next Session Date: 09/27/18 Procedures - Participants Therapy Participant: Patient - Session Time Session Start Time: 10:30 Session Stop Time: 11:00
[2018-09-22] MEDS: traMADol 50 MG TABLET PO PRN (05:59)
[2018-09-22 07:11] VITALS: BP 147/81
[2018-09-22] MEDS: PHENobarbital 32.4 MG TABLET PO SCH (09:45)
[2018-09-22] MEDS: *HR* Rivaroxaban 10 MG TABLET PO SCH (09:45)
--- NOTE | 2018-09-22 11:30 | Physician Discharge Referral ---
Home Health/Hosp Referral Info Transfer to: Home Health Provider in Charge Post Discharge: PCP - Diagnosis (1) Status post right hip replacement Priority: Primary Status: Acute (2) Epilepsy Priority: Secondary Status: Chronic (3) Coronary artery disease Priority: Secondary Status: Chronic (4) Hypertension Priority: Secondary Status: Chronic - Respiratory Orders Smoking Cessation: Smoking cessation has been advised. For more information, call the [place] Tobacco Quit Line at 9-749-KVWI-NOW. - Diet/Nutrition Diet/Nutrition Orders: Cardiac - Activity Activity Orders: Ambulate, Walker - Services Needed Following services are medically necessary services: Nursing, Physical Therapy - Transfer Medications Home Medications: PHENobarbital [Phenobarbital] 0.5 tab PO QID 07/20/18 [History] Phenytoin Sodium Extended [Phenytek] 100 mg PO QID 07/20/18 [History] Acetaminophen [Tylenol] 650 mg PO Q6HR PRN 09/12/18 [History] Atorvastatin [Lipitor] 40 mg PO HS 09/12/18 [History] DiphenhydraMINE [Benadryl] 25 mg PO HS PRN 09/12/18 [History] HYDROcodone/Acet 5/325 mg [[place] 5-325 mg] 2 tab PO Q4H PRN 09/12/18 [History] Polyethylene Glycol 3350 [MiraLAX] 17 gm PO DAILY 09/12/18 [History] Rivaroxaban [Xarelto] 10 mg PO QAM 09/12/18 [History] Sennosides [Senokot] 8.6 mg PO BID 09/12/18 [History] Allergies/Adverse Reactions: Allergy/AdvReac Type Severity Reaction Status Date / Time Enoxaparin [From Lovenox] AdvReac Rash Verified 07/20/18 08:37 Certification: Further, I certify that my clinical findings support that this patient is homebound (i.e. absences from home require considerable and taxing effort and are for medical reasons or protestant services or infrequently or short duration when for other reasons) because: Homebound Reason: Patient requires assistance of a person or device to safely leave home, Post-surgery restriction and or conditions limit ability to leave home, Leaving home requires considerable and taxing effort due to condition Attestation: My signature below is to certify that this patient is under my care and that I, or nurse practitioner, or a physician's environmental engineering assistant working with me, has a rruh-ie-nirs encounter with this patient.
--- NOTE | 2018-09-22 11:36 | Discharge Summary ---
Date of Encounter: 09/22/18 Time of Encounter: 11:31 - Discharge Diagnosis (1) Status post right hip replacement Priority: Primary Status: Acute Comments: Continue PT with home health. Pain controlled with tramadol. Follow up with surgeon as scheduled. (2) Epilepsy Priority: Secondary Status: Chronic Comments: Stable. No sign of seizures or tremors. Continue Dilantin. Qualifiers: Epilepsy type: unspecified Intractability: not intractable Status epilept icus: without status epilepticus Qualified Code(s): G40.909 - Epilepsy, unspecified, not intractable, without status epilepticus (3) Coronary artery disease Priority: Secondary Status: Chronic Comments: Stable. Denies chest pain. Continue current medication. Follow up with PCP. Qualifiers: Coronary Disease-Associated Artery/Lesion type: unspecified vessel or lesion type [place] vs. transplanted heart: [place] heart Associated angina: angina presence unspecified Qualified Code(s): I25.10 - Atherosclerotic heart disease of [place] coronary artery without angina pectoris (4) Hypertension Priority: Secondary Status: Chronic Comments: Controlled with current medication. Monitor blood pressure. Follow up with PCP. Qualifiers: Hypertension type: unspecified Qualified Code(s): I10 - Essential (primary) hypertension Hospital course: Mr. GONSALVES is a 78 year old male discharging to home status post right total hip replacement. Patient states pain is controlled with tramadol. Ambulating with Walker. Scheduled to follow up with surgeon. Denies any questions or concerns at this time. Discharge discussed with: patient, nurse, social work - Time Spent with Patient Total time spent providing and/or coordinating discharge services: Less than 30 minutes - Discharge Medications Home Medications: PHENobarbital [Phenobarbital] 0.5 tab PO QID 07/20/18 [History] Phenytoin Sodium Extended [Phenytek] 100 mg PO QID 07/20/18 [History] Acetaminophen [Tylenol] 650 mg PO Q6HR PRN 09/12/18 [History] Atorvastatin [Lipitor] 40 mg PO HS 09/12/18 [History] DiphenhydraMINE [Benadryl] 25 mg PO HS PRN 09/12/18 [History] Polyethylene Glycol 3350 [MiraLAX] 17 gm PO DAILY 09/12/18 [History] Sennosides [Senokot] 8.6 mg PO BID 09/12/18 [History] Phenytoin [Dilantin] 100 mg PO Q6HR tab.chew 09/22/18 [Rx] Rivaroxaban [Xarelto] 10 mg PO QAM 30 Days #30 tablet 09/22/18 [Rx] Allergies/Adverse Reactions: Allergy/AdvReac Type Severity Reaction Status Date / Time Enoxaparin [From Lovenox] AdvReac Rash Verified 07/20/18 08:37 Date of admission: 09/12/18 17:56 Primary care physician: Yadira France Consults: 09/20/18 12:27 Consult to Psychology [CONS] Routine Consulting Provider: Indira Bhagat Reason for Consult: Possible depression; adjustment disorder Call Completed: No 09/12/18 18:53 Consult to Physical Therapy [CONS] Routine Comment: Evaluate, develop and implement POC Reason for Consult: rehab Does patient have active BEDREST order?: No Is patient medically & hemodynamically stable?: Yes Patient assessed for mobility or mobilized this visit?: No 09/12/18 18:54 Consult to Occupational Therapy [CONS] Routine Comment: Evaluate, develop and implement POC Reason for Consult: rehab Does patient have active BEDREST order?: No Is patient medically & hemodynamically stable?: Yes Patient assessed for mobility or mobilized this visit?: No Consult to Recreational Therapy [CONS] Routine Comment: Discharging clinician: Juwan Morales Anticipated date of discharge: 09/22/18 - Constitutional Vitals: Temp Pulse Resp BP Pulse Ox 98.1 F 92 18 147/81 96 09/22/18 07:08 09/22/18 07:08 09/22/18 07:08 09/22/18 07:08 09/22/18 07:08 General appearance: Present: A&O X 3, pleasant - Head Head exam: Present: atraumatic, normocephalic - Eye Eye exam: Present: PERRL, conjuntiva pink, sclera anicteric Pupils: Present: PERRL - Neck Neck exam general surgery: Present: supple, trachea midline. Absent: lymphadenopathy - Respiratory Respiratory exam: Present: CTAB. Absent: accessory muscle use, rales, rhonchi, wheezes - Cardiovascular Cardiovascular exam: Present: RRR, +S1, +S2. Absent: diastolic murmur, gallop, rubs, systolic murmur - GI/Abdominal GI/Abdominal exam: Present: normal bowel sounds, soft, no peritoneal signs. Ab sent: distended, tenderness - Extremities Exam Extremities exam: Present: warm, radial pulses palpable and symmetrical. Absent: calf tenderness, cyanotic, pedal edema Additional comments: nonpitting BLE edema. R>L - [place] Comments: rigt hip drsg dry and intact. no redness or sign of infection. - Neurological Exam Neurological exam: Present: CN II-XII intact, oriented X3, no focal deficits. Absent: pronater drift, facial droop, speech deficit - Skin Skin exam: Present: dry, intact - Patient Status Disposition: Home Health Service Condition: Good Functional capacity at discharge: uses cane/walker Overall status at discharge: patient is progressing back to baseline - Discharge Instructions Follow Up With: Hugo Dyson PA [Other] - 10/25/18 1:30 pm (Please follow up with Hugo Dyson on 10/25/2018 @ 1:30 pm) Yadira France MD [Primary Care Provider] - 10/02/18 2:45 pm (TuesdayOctober 02. 2:45pm.) Additional Instructions: Follow-up appointments: If there is not an appointment listed below, please call your physician and schedule a follow-up appointment. If you have congestive heart failure and your symptoms return, make an appointment with your physician. Medication List: Carry an up to date list of medications you are taking at all time. We have given you an updated medication list including any new medications that you have been prescribed. Please provide that list to your primary provider Symptoms: If your condition changes or you experience any of the following symptoms, notify your physician immediately: Unusual or worsening pain, fever, persistent nausea and vomiting, bleeding, increase in swelling (especially in your legs), sudden weight gain, extreme dizziness, chest pain, increased drainage or redness from a wound or incision. Go to the emergency department if you experience a problem with breathing. Weights: If you have a history of swelling or shortness of breath, weigh yourself daily and notify your physician if you have a weight gain of two or more pounds in one day or 5 or more pounds in a week. If you experience any of the warning signs for stroke: Sudden numbness or weakness of the face, arm or leg; especially on one side of the body, sudden confusion, trouble speaking or understanding, sudden trouble seeing in one or both eyes, sudden trouble walking, dizziness, loss of balance or coordination, sudden sever headache with no cause; Call 911 or go to the emergency room. Stroke is a medical emergency. Some risk factors for stroke: Age, cigarette smoking, diabetes, excessive alcohol consumption, family history, high blood pressure, overweight, physical inactivity, prior stroke, heart attack, diagnosis of carotid artery stenosis or other artery disease. If you smoke, STOP: Smoking or tobacco use significantly increases your risk of heart and lung disease. Your chance of disease greatly increases if you continue to smoke. For more information, call the [place] tobacco quit line for smoking cessation 4-234-NVGU-NOW ( ) - Diet and Activity Activity: as per physical therapy Diet: low salt diet
== END 2018-09-22 12:40 | disposition home health service (06) | DRG 560 ==
LOC: INPGRE 09-12 17:56
PROVIDERS: ADMIT Internal Medicine; ATTEND Internal Medicine